=== PATIENT | male | born 1980 | race Caucasian/White ===

== ENCOUNTER 2024-12-05 02:09 | Emergency (ER) | payer BC, SELFPAY ==
--- NOTE | ~2024-12-05 | XR_ITS ---
CLINICAL HISTORY: sob 1 view chest x-ray Comparison: None Findings: Normal size heart. Left lower lobe/basilar airspace opacity. Small opacity in midlung. No significant pleural effusion or pneumothorax. No acute fracture. Mild deformity of right clavicle likely healed fracture. IMPRESSION: 1. Left lower lobe/basilar opacity suggestive of pneumonia. 2. Small right midlung opacity in early/developing pneumonia not excluded. This document has been electronically signed by: Solange Becker MD on 12/05/2024 03:08:45
[2024-12-05 02:27] VITALS: BP 119/68; PULSE 114; RESP 20; TEMP 38.6; O2SAT 98; BMI 25.4
[2024-12-05] MEDS: Acetaminophen 325 MG TABLET 650 MG PO (02:34)
[2024-12-05 03:00] LABS: MANUAL DIFF FLAG NO
[2024-12-05 03:03] LABS: Basophils Percent Auto 0.1 % (0-2); Eosinophils Absolute Auto 0.1 X10*3/uL (0.0-0.4); Eosinophils Percent Auto 0.3 % (0-4); Hematocrit 37.4 % (42.0-52.0); Hemoglobin 13.1 g/dl (14.0-18.0); Imm Gran Abs Auto 0.05 X10*3/uL (0.00-0.03); Imm Gran Pct Auto 0.3 % (0.0-0.4); Lymphocytes Absolute Auto 1.3 X10*3/uL (1.2-4.9); Lymphocytes Percent Auto 8.3 % (20-40); Mean Corpuscular Volume 82.9 fL (80.0-98.0); Mean Platelet Volume 9.9 fL (9.4-12.4); Monocytes Absolute Auto 1.4 X10*3/uL (0.1-1.2); Monocytes Percent Auto 9.4 % (2-11); Neutrophils Absolute Auto 12.3 x10*3/uL (2.0-8.3); Neutrophils Percent Auto 81.6 % (45-73); Platelet Count 250 X10*3/uL (160-400); Red Blood Count 4.51 X10*6/uL (4.60-5.80); Red Cell Distribution Width 12.8 % (11.0-16.0); White Blood Count 15.1 X10*3/uL (4.8-10.8)
[2024-12-05 03:23] LABS: Alanine Aminotransferase 9 U/L (0-40); Albumin Level 3.6 g/dL (3.5-5.0); Anion Gap 14 (12-20); Aspartate Amino Transferase 20 U/L (5-37); Bilirubin Total 1.6 mg/dL (0.0-1.0); Blood Urea Nitrogen 13 mg/dL (9-16); Calcium 8.8 mg/dL (8.4-10.2); Carbon Dioxide 22 mmol/L (22-29); Chloride 105 mmol/L (96-108); Creatinine Clr Calc Pharmacy 128.8; Estimated Glomerular Filt Rate > 60; Glucose Random 116 mg/dL (60-115); Potassium 3.8 mmol/L (3.3-5.1); Sodium 137 mmol/L (135-145); Total Protein 6.9 g/dL (6.5-8.0)
[2024-12-05 03:38] LABS: Influenza A PCR NEGATIVE (Negative); Influenza B PCR NEGATIVE (Negative); Resp Syncy Virus RNA Qual PCR NEGATIVE (Negative); SARS COV2 PCR INHOUSE NEGATIVE (Negative)
[2024-12-05 03:46] LABS: Alkaline Phosphatase 62 U/L (39-117)
[2024-12-05 04:00] VITALS: O2SAT 97
[2024-12-05 04:24] VITALS: BP 115/69; PULSE 89; RESP 18; TEMP 37; O2SAT 96
[2024-12-05] MEDS: cefTRIAXone sodium 1 GM VIAL IVPUSH (05:08)
[2024-12-05] MEDS: methylPREDNISolone Sod Succ 125 MG/2 ML VIAL IVPUSH (05:08)
[2024-12-05] MEDS: Doxycycline Monohydrate 100 MG CAPSULE PO (05:08)
--- NOTE | 2024-12-05 05:29 | PC.NURSE ---
0504--- verified antibiotic compatibility with pharmacy prior to administering ceftriaxone; cleared to administer and monitor pt.
[2024-12-05] MEDS: Albuterol Sulfate 2.5 MG, Albuterol/Iprat 2.5/0.5MG 3 ML 3 ML INHALE (05:30)
[2024-12-05 05:33] VITALS: PULSE 97; RESP 21; O2SAT 96
--- NOTE | 2024-12-05 06:03 | ED.URI ---
HPI - URI/Sore Throat General Chief Complaint: Upper Respiratory Symptoms Stated Complaint: flu like, left sided pain Time Seen by Provider: 12/05/24 04:19 Source: patient Mode of arrival: ambulatory Limitations: no limitations History of Present Illness ED Provider: HPI Narrative: Patient with history of asthma complaining of cough with mucopurulent phlegm for last 2 weeks getting worse in last 4 days complaining of pain bilateral lower lobes specially in the left side posterior does have low-grade fever off and on with chills Related Data Previous Rx's ?Medication ?Instructions ?Recorded albuterol sulfate 2.5 mg/3 mL 2.5 mg (3 mL) inhalation Q4-6H PRN 12/05/24 (0.083 %) solution for nebulization shortness of breath or wheezing #90 mL cefuroxime axetil 500 mg tablet 500 mg PO BID 10 days #20 tabs 12/05/24 codeine 10 mg-guaifenesin 100 mg/5 10 ml PO Q6H PRN cough #237 mL 12/05/24 mL oral liquid doxycycline hyclate 100 mg tablet 100 mg PO BID #20 tabs 12/05/24 ibuprofen 600 mg tablet 600 mg PO Q6H PRN fever or pain 12/05/24 #30 tabs prednisone 20 mg tablet 40 mg (2 x 20 mg) PO DAILY #10 tabs 12/05/24 Allergies Allergy/AdvReac Type Severity Reaction Status Date / Time amoxicillin AdvReac Hives Verified 12/05/24 02:30 Penicillins AdvReac Hives Verified 12/05/24 02:29 sulfamethoxazole AdvReac Hives Verified 12/05/24 02:30 [From Bactrim] trimethoprim [From Bactrim] AdvReac Hives Verified 12/05/24 02:30 Review of Systems Review of Systems: Yes all other systems are reviewed and are negative PMFSH Social History Social History Advance Directives: No Advance Directives Information Provided: Yes Do you have a plan to hurt others: No Plan Physical Exam Vital Signs: Vital Signs: Last Vital Signs Temp 98.7 F 12/05/24 06:29 Pulse 102 H 12/05/24 06:29 Resp 21 H 01/31/25 06:29 BP 137/85 12/05/24 06:29 Pulse Ox 98 12/05/24 06:29 O2 Del Method Room Air 12/05/24 06:29 BMI result Body Mass Index 25.4 Appearance: Alert. Oriented X3. No acute distress. Eyes: No pallor or icterus ENT: Pharynx normal. Oral Mucosa moist Neck: Normal inspection. Neck supple. CVS: Normal heart rate and rhythm. Pulses normal. Respiratory: No respiratory distress. Equal air entry bilateral, prolonged expiration with bilateral crackles posteriorly more on the left side with wheezing Abdomen: Soft and nontender. Bowel sounds are present, no mass palpable, no CVA tenderness Skin: Skin warm and dry. Normal skin color. Normal skin turgor. Extremities: No lower extremity edema. No calf tenderness Neuro: Oriented X 3. No motor deficit. No sensory deficit.No cerebellar signs , cranial nerves II-XII intact Medications Administered Discontinued Medications Generic Name Dose Route Start Last Admin Trade Name Freq PRN Reason Stop Dose Admin Acetaminophen 650 mg 12/05/24 02:26 12/05/24 02:34 Acetaminophen 325 Mg Tablet PO 12/05/24 02:27 650 mg ONCE ONE Administration Ceftriaxone Sodium 1 gm 12/05/24 04:56 12/05/24 05:08 Ceftriaxone Sodium 1 Gm Vial IVPUSH 12/05/24 04:57 1 gm ONCE ONE Administration Albuterol Sulfate 2.5 mg/ 0 mg 12/05/24 04:55 12/05/24 05:30 Albuterol/Ipratropium 3 ml INHALE 12/05/24 04:56 5 dose ONCE ONE Administration Doxycycline Monohydrate 100 mg 12/05/24 04:55 12/05/24 05:08 Doxycycline Monohydrate 100 Mg Capsule PO 12/05/24 04:56 100 mg ONCE ONE Administration Guaifenesin/Codeine Phosphate 10 ml 12/05/24 06:07 12/05/24 06:14 Guaifen/Codeine Sf 200/20/10ml 10 Ml Liquid PO 12/05/24 06:08 10 ml ONCE ONE Administration Methylprednisolone Sodium Succinate 125 mg 12/05/24 04:56 12/05/24 05:08 Methylprednisolone Sod Succ 125 Mg/2 Ml Vial IVPUSH 12/05/24 04:57 125 mg ONCE ONE Administration Medical Decision Making Medical Decision Making MDM Narrative: Patient's community-acquired pneumonia was given Rocephin in the ER discharge patient home on Ceftin and doxycycline Lab Data [facility] Lab Attestation statement: I reviewed the patient's lab results. 12/05/24 02:56 12/05/24 02:56 Labs: Lab Results 12/05/24 Range/Units 02:56 WBC 15.1 H (4.8-10.8) X10*3/uL RBC 4.51 L (4.60-5.80) X10*6/uL Hgb 13.1 L (14.0-18.0) g/dl Hct 37.4 L (42.0-52.0) % MCV 82.9 (80.0-98.0) fL MCH 29.0 (27.0-33.0) pg MCHC 35.0 (31.0-36.0) g/dl RDW 12.8 (11.0-16.0) % Plt Count 250 (160-400) X10*3/uL MPV 9.9 (9.4-12.4) fL Immature Gran % (Auto) 0.3 (0.0-0.4) % Neut % (Auto) 81.6 H (45-73) % Lymph % (Auto) 8.3 L (20-40) % [place] % (Auto) 9.4 (2-11) % Eos % (Auto) 0.3 (0-4) % Baso % (Auto) 0.1 (0-2) % Lymph # (Auto) 1.3 (1.2-4.9) X10*3/uL [place] # (Auto) 1.4 H (0.1-1.2) X10*3/uL Eos # (Auto) 0.1 (0.0-0.4) X10*3/uL Baso # (Auto) 0.0 (0.0-0.2) X10*3/uL Abs Immat Gran (auto) 0.05 H (0.00-0.03) X10*3/uL Absolute Neuts (auto) 12.3 H (2.0-8.3) x10*3/uL Absolute Nucleated RBC 0.000 (0.0-0.012) X10*3/uL Nucleated RBC % (auto) 0.0 (0.0-0.2) /100WBC Sodium 137 (135-145) mmol/L Potassium 3.8 (3.3-5.1) mmol/L Chloride 105 (96-108) mmol/L Carbon Dioxide 22 (22-29) mmol/L Anion Gap 14 (12-20) BUN 13 (9-16) mg/dL Creatinine 0.82 (0.5-1.4) mg/dL Estim Creat Clear Calc 128.8 Estimated GFR > 60 Random Glucose 116 H (60-115) mg/dL Calcium 8.8 (8.4-10.2) mg/dL Total Bilirubin 1.6 H (0.0-1.0) mg/dL AST 20 (5-37) U/L ALT 9 (0-40) U/L Alkaline Phosphatase 62 (39-117) U/L Total Protein 6.9 (6.5-8.0) g/dL Albumin 3.6 (3.5-5.0) g/dL Influenza Type A (PCR) NEGATIVE (Negative) Influenza Type B (PCR) NEGATIVE (Negative) RSV RNA Qual (PCR) NEGATIVE (Negative) SARS-CoV-2 RNA (RT-PCR) NEGATIVE (Negative) Radiology Impression Discussion of test interpretation with radiology: I have reviewed the radiologist's reading. Radiologist Impression: [place] [id number] XRay Report Signed Patient: Jigar Johnson MR#: [id number] : 1980 Acct:[id number] Age/Sex: 44 / M ADM Date: 12/05/24 Loc: .ED Attending Dr: Ordering Physician: Generic ED Physician Date of Service: 12/05/24 Procedure(s): XR chest 1V Accession Number(s): [id number] cc: Generic ED Physician; Physician,Unknown ~ CLINICAL HISTORY: sob 1 view chest x-ray Comparison: None Findings: Normal size heart. Left lower lobe/basilar airspace opacity. Small opacity in midlung. No significant pleural effusion or pneumothorax. No acute fracture. Mild deformity of right clavicle likely healed fracture. IMPRESSION: 1. Left lower lobe/basilar opacity suggestive of pneumonia. 2. Small right midlung opacity in early/developing pneumonia not excluded. This document has been electronically signed by: Solange Becker MD on 12/05/2024 03:08:45 Discharge Plan Discharge Clinical Impression: Pneumonia, Bronchitis Patient Disposition: Home, Self-Care Instructions: Acute Bronchitis (ED), Community Acquired Pneumonia (ED) Additional Instructions: Drink plenty of fluids take Tylenol/Motrin for fever Take antibiotic as prescribed Cough syrup as prescribed Use your nebulizer every 4-6 hours as needed Prednisone as prescribed Report to ER if not better Prescriptions: New albuterol sulfate 2.5 mg /3 mL (0.083 %) solution for nebulization 2.5 mg inhalation Q4-6H PRN (Reason: shortness of breath or wheezing) Qty: 90 0RF prednisone 20 mg tablet 40 mg PO DAILY Qty: 10 0RF codeine-guaifenesin 10-100 mg/5 mL liquid 10 ml PO Q6H PRN (Reason: cough) Qty: 237 0RF ibuprofen 600 mg tablet 600 mg PO Q6H PRN (Reason: fever or pain) Qty: 30 0RF cefuroxime axetil 500 mg tablet 500 mg PO BID 10 Days Qty: 20 0RF doxycycline hyclate 100 mg tablet 100 mg PO BID Qty: 20 0RF Interventions: ED Discharge Assessment Last Done: 12/05/24 06:29 Discharge Date/Time: 12/05/24 06:30 Print Language: Estonian
[2024-12-05] MEDS: guaiFEN/Codeine SF 200/20/10ML 10 ML LIQUID PO (06:14)
--- NOTE | 2024-12-05 06:16 | PC.NURSE ---
0513-- called RN into room due to scratchy sensation to bilateral eyes/throat. MD made aware and advised Rn to monitor pt.
--- NOTE | 2024-12-05 06:18 | PC.NURSE ---
scratchy sensation to eyes/throat subsided. resting comfortably on stretcher awaiting dispo. no distress.
[2024-12-05 06:29] VITALS: BP 137/85; PULSE 102; RESP 21; TEMP 37.1; O2SAT 98
== END 2024-12-05 06:30 | disposition home or self-care (01) ==
PROVIDERS: Emergency Provider Internal Medicine
DX: J18.9 Pneumonia, unspecified organism (principal); J40 Bronchitis, not specified as acute or chronic; R06.02 Shortness of breath; Z03.818 Encounter for observation for suspected exposure to other biological agents ruled out; Z79.899 Other long term (current) drug therapy
CPT/HCPCS: 0241U; 36415; 71045; 80053; 85025; 94640; 96374; 96375; 99284; 99285; J0696; J2919

== ENCOUNTER → 2024-12-05 02:40 | Outpatient (BNV) | payer BC, SELFPAY | PROVIDERS: Visit Provider Specialist | DX: R06.02 Shortness of breath (principal) | CPT/HCPCS: 71045 ==

== ENCOUNTER 2025-04-03 23:16 | Emergency (ER) | payer MEDICAID, SELFPAY ==
[2025-04-03 23:24] VITALS: BP 146/91; PULSE 83; RESP 18; TEMP 36.8; O2SAT 100; BMI 25.8
--- NOTE | 2025-04-03 23:27 | ED_ITS ---
HPI - Allergic Reaction General Chief complaint: Skin/Abscess/Foreign Body Stated complaint: Allergic Reaction, Hives Time Seen by Provider: 04/03/25 23:27 Source: patient Mode of arrival: ambulatory Limitations: no limitations History of Present Illness HPI narrative: patient is a 45-year-old male who presents emergency department for evaluation. He reports that he awoke from sleep at 03:00 this morning feeling intense pruritus to his right buttock. He states that as the morning has progressed this has spread to the bilateral buttocks, lower back, bilateral legs, bilateral knees, bilateral elbows. He has been taking Benadryl throughout the day and applying topical hydrocortisone cream, symptoms resolved slightly but never have fully went away. Then flare back up again. This evening he felt a tingling sensation to his lips which prompted him to come to emergency department for evaluation. The states that he has had prior skin sensitivities in the past that resulted in him having allergy testing performed, reports that he had a slight allergy to Colette not but he consumes Colette not without difficulty. He has not taken any new medications. Denies any new soaps lotions or detergents. He does report that yesterday evening he had a homemade bulgarian cuisine meal prepared from a friend she would not typically eat and a cheesecake. Related Data Previous Rx's ?Medication ?Instructions ?Recorded albuterol sulfate 2.5 mg/3 mL 2.5 mg (3 mL) inhalation Q4-6H PRN 12/05/24 (0.083 %) solution for nebulization shortness of breath or wheezing #90 mL cefuroxime axetil 500 mg tablet 500 mg PO BID 10 days #20 tabs 12/05/24 codeine 10 mg-guaifenesin 100 mg/5 10 ml PO Q6H PRN cough #237 mL 12/05/24 mL oral liquid doxycycline hyclate 100 mg tablet 100 mg PO BID #20 tabs 12/05/24 ibuprofen 600 mg tablet 600 mg PO Q6H PRN fever or pain 12/05/24 #30 tabs prednisone 20 mg tablet 40 mg (2 x 20 mg) PO DAILY #10 tabs 12/05/24 loratadine 10 mg tablet (Claritin) 10 mg PO DAILY #10 tabs 04/04/25 prednisone 20 mg tablet 40 mg (2 x 20 mg) PO DAILY #10 tabs 04/04/25 Allergies Allergy/AdvReac Type Severity Reaction Status Date / Time amoxicillin AdvReac Hives Verified 04/03/25 23:26 Penicillins AdvReac Hives Verified 04/03/25 23:26 sulfamethoxazole AdvReac Hives Verified 04/03/25 23:26 [From Bactrim] trimethoprim [From Bactrim] AdvReac Hives Verified 04/03/25 23:26 Review of Systems 2 Review of Systems: Yes all other systems are reviewed and are negative [facility] Past Medical History Attestation statement: The following information was validated with the patient. Source: old records reviewed Social History Social History Smoked in Last 30 Days: No Use of substances other than those prescribed or required for medical reasons: No Advance Directives: No Advance Directives Information Provided: Yes Do you have a plan to hurt others: No Plan Physical Exam ED Vital Signs: Vital Signs - 24 hr 04/03/25 23:24 04/04/25 00:04 04/04/25 01:31 Temperature 98.3 F 98.3 F 98.3 F Pulse Rate 83 76 76 Respiratory Rate 18 22 H 22 H Blood Pressure 146/91 H 143/68 H 143/68 H Pulse Oximetry 100 99 99 Oxygen Delivery Method Room Air Room Air Room Air BMI result Body Mass Index 25.8 Appearance: Alert.?Oriented to person, place and time. No acute distress.?Normal affect. Eyes: Pupils equal, round and reactive to light.? ENT: Pharynx normal.?? No angioedema. Uvula midline. No trismus. No drooling. Neck: Normal inspection.? Neck supple.?? CVS: Heart sounds normal. Normal heart rate and rhythm.? Pulses normal.?? Respiratory: No respiratory distress.? Lung sounds clear to auscultation bilaterally?? Abdomen: Soft and non-tender. Normoactive bowel sounds. Skin: Skin warm and dry.? Normal skin color.? urticaria noted to the bilateral buttock, bilateral knee, bilateral elbows and right hand. Extremities: No lower extremity edema.? No calf ttp? Neuro: Moves all extremities spontaneously. Sensation intact bilaterally. Ambulates with normal steady gait. Course Reevaluation(s) Reevaluation #1: Symptomatic improvement after medicated with near complete resolution of urticaria. Range without angioedema or respiratory distress. Requesting discharge home dry feel is reasonable at this time. Sent prescription for prednisone to pharmacy and strict return precautions were discussed. Overall serum labs unremarkable CBC without leukocytosis anemia or thrombocytopenia, no electrolyte derangement, no NICO. No significant LFT abnormality. Medications Administered Discontinued Medications Generic Name Dose Route Start Last Admin Trade Name Saloni PRN Reason Stop Dose Admin Diphenhydramine HCl 25 mg 04/03/25 23:45 04/04/25 00:06 Diphenhydramine Hcl 50 Mg/Ml Vial IVPUSH 04/03/25 23:46 25 mg ONCE ONE Administration Famotidine 20 mg 04/03/25 23:45 04/04/25 00:07 Famotidine/Pf 20 Mg/2 Ml Vial IVPUSH 04/03/25 23:46 20 mg ONCE ONE Administration Methylprednisolone Sodium Succinate 125 mg 04/03/25 23:45 04/04/25 00:06 Methylprednisolone Sod Succ 125 Mg Vial IVPUSH 04/03/25 23:46 125 mg ONCE ONE Administration Medical Decision Making Medical Decision Making [facility] Narrative: patient is a 45-year-old male who presents emergency department for evaluation with expressed concern for an allergic reaction with a intensely pruritic rash spreading diffusely throughout the body progressively throughout today as per HPI. He trialed a few doses of Benadryl throughout the day as well as hydrocortisone with only mild symptomatic improvement but never complete resolution. This evening had tingling sensation to the mouth with his concern. On evaluation he does not have angioedema, no airway compromise, he is managing secretions and speaking clear full sentences. At this time the cause of this reaction is unclear. Will trial Solu-Medrol, Benadryl, Pepcid at this time. Not c/w SSSS/ TEN/Erythema multiforme/ Restrepo Johnsons. Given history and physical exam, Will watch and observe. If patient continues to be symptom free After being medically, will discharge with return precautions. Patient understands and agrees with plan Differential concerning for Allergic reaction/urticaria, anaphylaxis, angioedema, anxiety, asthma exacerbation, contact dermatitis Differential Diagnosis Differential Diagnoses: The differential diagnosis associated with the presentation includes ( see narrative above) Admission/Observation Consideration of admission/observation: Escalation of care including admission/observation considered Lab Data 04/04/25 00:04 04/04/25 00:04 Labs: Lab Results 04/04/25 Range/Units 00:04 WBC 8.2 (4.8-10.8) X10*3/uL RBC 5.13 (4.60-5.80) X10*6/uL Hgb 14.9 (14.0-18.0) g/dl Hct 41.6 L (42.0-52.0) % MCV 81.1 (80.0-98.0) fL MCH 29.0 (27.0-33.0) pg MCHC 35.8 (31.0-36.0) g/dl RDW 12.8 (11.0-16.0) % Plt Count 226 (160-400) X10*3/uL MPV 10.0 (9.4-12.4) fL Immature Gran % (Auto) 0.2 (0.0-0.4) % Neut % (Auto) 52.3 (45-73) % Lymph % (Auto) 35.2 (20-40) % [place] % (Auto) 9.3 (2-11) % Eos % (Auto) 2.1 (0-4) % Baso % (Auto) 0.9 (0-2) % Lymph # (Auto) 2.9 (1.2-4.9) X10*3/uL [place] # (Auto) 0.8 (0.1-1.2) X10*3/uL Eos # (Auto) 0.2 (0.0-0.4) X10*3/uL Baso # (Auto) 0.1 (0.0-0.2) X10*3/uL Abs Immat Gran (auto) 0.02 (0.00-0.03) X10*3/uL Absolute Neuts (auto) 4.3 (2.0-8.3) x10*3/uL Absolute Nucleated RBC 0.000 (0.0-0.012) X10*3/uL Nucleated RBC % (auto) 0.0 (0.0-0.2) /100WBC Sodium 139 (135-145) mmol/L Potassium 4.6 D (3.3-5.1) mmol/L Chloride 107 (96-108) mmol/L Carbon Dioxide 23 (22-29) mmol/L Anion Gap 14 (12-20) BUN 17 H (9-16) mg/dL Creatinine 0.97 (0.5-1.4) mg/dL Estim Creat Clear Calc 107.7 Estimated GFR > 60 Random Glucose 96 (60-115) mg/dL Calcium 9.2 (8.4-10.2) mg/dL Total Bilirubin 0.8 (0.0-1.0) mg/dL AST 47 H (5-37) U/L ALT 28 (0-40) U/L Alkaline Phosphatase 67 (39-117) U/L Total Protein 7.4 (6.5-8.0) g/dL Albumin 4.1 (3.5-5.0) g/dL External Record Review External record reviewed: Outpatient record Discharge Plan Discharge Clinical Impression: Urticaria Patient Disposition: Home, Self-Care Instructions: Urticaria (ED) Additional Instructions: as discussed, at this time it is clear what you were having a reaction to. You presenting to emergency department with hives on the body, for which he received medication Sometimes this can happen as we discussed idiopathic daily, for reasons unknown versus secondary to an exposure or in response to illness. Sent a prescription for prednisone to your pharmacy to take daily over the next 5 days, please take this with food to prevent stomach upset. Addition, take antihistamines; Claritin daily. Follow-up with PCP/ infection control coordinator with persistent symptoms. Return to emergency department with new or worsening symptoms or concerns which includes but is not limited to difficulty breathing, swelling of the face/ lip/throat, chest pain Prescriptions: New prednisone 20 mg tablet 40 mg PO DAILY Qty: 10 0RF loratadine [Claritin] 10 mg tablet 10 mg PO DAILY Qty: 10 0RF No Action albuterol sulfate 2.5 mg /3 mL (0.083 %) solution for nebulization 2.5 mg inhalation Q4-6H PRN (Reason: shortness of breath or wheezing) Qty: 90 0RF prednisone 20 mg tablet 40 mg PO DAILY Qty: 10 0RF codeine-guaifenesin 10-100 mg/5 mL liquid 10 ml PO Q6H PRN (Reason: cough) Qty: 237 0RF ibuprofen 600 mg tablet 600 mg PO Q6H PRN (Reason: fever or pain) Qty: 30 0RF cefuroxime axetil 500 mg tablet 500 mg PO BID 10 Days Qty: 20 0RF doxycycline hyclate 100 mg tablet 100 mg PO BID Qty: 20 0RF Referrals: Gregg Salcedo MD [Primary Care Provider] - Interventions: ED Discharge Assessment Last Done: 04/04/25 01:31 Discharge Date/Time: 04/04/25 01:32 Print Language: Persian
[2025-04-04 00:04] VITALS: BP 143/68; PULSE 76; RESP 22; TEMP 36.8; O2SAT 99
[2025-04-04] MEDS: diphenhydrAMINE HCL 50 MG/ML VIAL 25 MG IVPUSH (00:06)
[2025-04-04] MEDS: Famotidine/PF 20 MG/2 ML VIAL IVPUSH (00:07)
[2025-04-04 00:09] LABS: MANUAL DIFF FLAG NO
[2025-04-04 00:11] LABS: Basophils Absolute Auto 0.1 X10*3/uL (0.0-0.2); Basophils Percent Auto 0.9 % (0-2); Eosinophils Absolute Auto 0.2 X10*3/uL (0.0-0.4); Eosinophils Percent Auto 2.1 % (0-4); Hematocrit 41.6 % (42.0-52.0); Hemoglobin 14.9 g/dl (14.0-18.0); Imm Gran Abs Auto 0.02 X10*3/uL (0.00-0.03); Imm Gran Pct Auto 0.2 % (0.0-0.4); Lymphocytes Absolute Auto 2.9 X10*3/uL (1.2-4.9); Lymphocytes Percent Auto 35.2 % (20-40); Mean Corpuscular HGB Conc 35.8 g/dl (31.0-36.0); Mean Corpuscular Volume 81.1 fL (80.0-98.0); Monocytes Absolute Auto 0.8 X10*3/uL (0.1-1.2); Monocytes Percent Auto 9.3 % (2-11); Neutrophils Absolute Auto 4.3 x10*3/uL (2.0-8.3); Neutrophils Percent Auto 52.3 % (45-73); Platelet Count 226 X10*3/uL (160-400); Red Blood Count 5.13 X10*6/uL (4.60-5.80); Red Cell Distribution Width 12.8 % (11.0-16.0); White Blood Count 8.2 X10*3/uL (4.8-10.8)
[2025-04-04 00:28] LABS: Alanine Aminotransferase 28 U/L (0-40); Albumin Level 4.1 g/dL (3.5-5.0); Alkaline Phosphatase 67 U/L (39-117); Anion Gap 14 (12-20); Aspartate Amino Transferase 47 U/L (5-37); Bilirubin Total 0.8 mg/dL (0.0-1.0); Blood Urea Nitrogen 17 mg/dL (9-16); Calcium 9.2 mg/dL (8.4-10.2); Carbon Dioxide 23 mmol/L (22-29); Chloride 107 mmol/L (96-108); Creatinine Clr Calc Pharmacy 107.7; Estimated Glomerular Filt Rate > 60; Glucose Random 96 mg/dL (60-115); Potassium 4.6 mmol/L (3.3-5.1); Sodium 139 mmol/L (135-145); Total Protein 7.4 g/dL (6.5-8.0)
--- OUTSIDE RECORDS SUMMARY | 2025-04-04 00:54 | XMS_ITS | Clinical Summary ---
Author Organization [facility] Address [address] [place] [address] Care Team Providers Care Population Health Manager Name Role Phone Pierre Salcedo Primary Care Provider Allergies Active Allergy Reactions Criticality Noted Date Comments Penicillins Hives,Dermatitis,Rash 11/03/2010 Sulfa (Sulfonamide Antibiotics) Dermatitis 11/03/2010 BACTRIM(SULFA (SULFONAMIDE ANTIBIOTICS)) Medications No known medications Active Problems Problem Noted Date Diagnosed Date Oral thrush 05/01/2023 Social History Tobacco Use Types Packs/Day Years Used Date Smoking Tobacco: Never Assessed Sex and Gender Information Value Date Recorded Sex Assigned at Male 04/30/2023 9:49 AM EDT Legal Sex Male 11:48 AM EDT Gender Identity Male 04/30/2023 9:49 AM EDT Sexual Orientation Straight 04/30/2023 9: 49 AM EDT Last Filed Vital Signs Vital Sign Reading Time Taken Comments Blood Pressure 111/74 05/01/2023 8:58 AM EDT Pulse 72 05/01/2023 8:58 AM EDT Temperature 36.6 ??C (97.8 ??F) 05/01/2023 8:58 AM ED T Respiratory Rate 18 05/01/2023 8:58 AM EDT Oxygen Saturation 98% 05/01/2023 8:58 AM EDT Inhaled Oxygen Concentration - - Weight 81.2 kg (179 lb) 05/01/2023 8:58 AM EDT Height - - Body Mass Index - - Plan of Treatment Health Maintenance Due Date Last Done Comments Hepatitis C Screening 1980 Varicella Vaccines (1 of 2 - 13+ 2-dose series) 1995 Hepatitis B Vaccines (1 of 3 - 19+ 3-dose series) 2001 Pneumococcal Vaccine: Pediat faheem (0-5 Years) and At-Risk Patients (6-50 Years) (2 of 2 - PPSV23) 08/23/2015 06/28/2015 COVID-19 Vaccine (3 - 2023- season) 2024, 02/01/2021 Alcohol/Substance Use Screening 11/05/2024 Depression Screening and Follow-Up 11/05/2024 Social Drivers of Health Annual Screening 11/05/2024 DTaP,Tdap,and Td Vaccines (2 - Td or Tdap) 06/28/2025 06/28/2015 Influenza Vaccine (Season Ended) 2025 08/18/20, 07/25/2019 RSV Vaccine (60+ years old a nd patients) (1 - 1-dose 75+ series) 2057 HIV Screening Completed 05/01/2023 Insurance [facility] PPO/EPO Care Teams Population Health Manager Relationship Specialty Start Date End Date Pierre Salcedo PCP - General Family Medicine 03/08/22
[2025-04-04 01:31] VITALS: BP 143/68; PULSE 76; RESP 22; TEMP 36.8; O2SAT 99
== END 2025-04-04 01:32 | disposition home or self-care (01) ==
PROVIDERS: Nurse Practitioner Family; Emergency Provider Emergency Medicine; PCP Plastic Surgery
DX: L50.9 Urticaria, unspecified (principal)
CPT/HCPCS: 36415; 80053; 85025; 96374; 96375; 99284; J1200; J1308; J2919

== ENCOUNTER 2025-06-21 02:25 | Observation (INO) | payer OTHER, SELFPAY ==
--- NOTE | ~2025-06-21 | XR_ITS ---
CLINICAL HISTORY: cough - COVID+ 1 view chest x-ray Comparison: CR - XR CHEST 1V - 12/05/24 02:43 EST Findings: The lungs are clear. Lung inflation is normal. Cardiac and mediastinal silhouettes are normal. No pneumothorax or pleural effusion. No new airspace opacities or consolidation. No acute fracture. IMPRESSION: 1. No acute cardiopulmonary process. This document has been electronically signed by: Rneé Keller III, MD PHD on 06/21/2025 05:03:27
--- NOTE | ~2025-06-21 | CT_ITS ---
CLINICAL HISTORY: acute onset confusion and gait instability CT angiography neck and head with contrast. 3D Postprocessing. Indication: Onset confusion and gait instability Comparison: None Findings: The aortic arch is conventional. Left subclavian is normal. The origin of the vertebral arteries are normal. V1 and V2 segments enhance normally. Mid V2 segment evaluation is limited due to patient motion. V3 segments are normal. The common carotid arteries are normal. Carotid bifurcations demonstrate 0% stenosis by NASCET criteria. No plaque ulceration. No significant wall thickness, allowing for motion limitations. The internal carotid arteries are patent. No pseudoaneurysm or stenosis. The petrous internal carotid arteries are normal. Cavernous internal carotid arteries are normal. Ophthalmic origins are normal. Supraclinoid internal carotid arteries are normal. A1 segments are codominant. There is a small anterior communicating artery. A2 and A3 segments are normal. The middle cerebral arteries are normal. No large vessel occlusion or stenosis. No aneurysm. The left posterior communicating artery is hypoplastic. The right posterior communicating arteries diminutive. Intradural vertebral arteries are codominant. Posterior inferior cerebellar arteries are patent. There is a fenestration of the left intradural V4 segment. The left posterior inferior cerebellar artery arises from a common anterior inferior cerebellar arterial trunk. The superior cerebellar arteries are normal. Posterior cerebral arteries are normal. Dural venous sinuses enhance normally. Veins of [place] are normal. Superior sagittal sinus, transverse and sigmoid sinuses are normal. Straight sinus and internal cerebral veins are normal. Paraspinal soft tissues are normal. Aerodigestive mucosa is normal. There is no lymphadenopathy. Parotid and submandibular glands are normal. Oral cavity and oropharynx are normal. Larynx is normal. Thyroid gland is homogeneous. IMPRESSION: No evidence of intracranial stenosis, occlusion, large vessel occlusion, or aneurysm. No evidence of dissection or pseudoaneurysm or stenosis in the cervical vasculature. Anatomic variant left vertebral fenestration. Normal dural venous sinuses. This document has been electronically signed by: René Keller III, MD PHD on 06/21/2025 04:48:08
--- NOTE | ~2025-06-21 | CT_ITS ---
CLINICAL HISTORY: change in mental status CT head without contrast Indication: Change in mental status Comparison: None Findings: Brain is normal in volume and morphology. Ventricles are normal in size. Midbrain, rashaun, medulla, and cerebellum are normal. There is no focal loss of love-white differentiation. No subarachnoid hemorrhage is present. No subdural or epidural hematoma. Suprasellar and basal cisterns are clear. There is no midline shift. Pituitary is normal. Orbits are normal. No acute fracture. Mastoid air cells and paranasal sinuses are clear. No soft tissue hematoma. IMPRESSION: 1. No acute intracranial hemorrhage. 2. No loss of love-white differentiation This document has been electronically signed by: René Keller III, MD PHD on 06/21/2025 03:55:51
[2025-06-21 02:33] VITALS: BP 162/100; PULSE 118; O2SAT 97
[2025-06-21 02:38] VITALS: BP 146/86; PULSE 100; RESP 20; TEMP 36.4; O2SAT 99; BMI 27.1
--- OUTSIDE RECORDS SUMMARY | 2025-06-21 02:51 | XMS_ITS | Clinical Summary ---
Author Organization [facility] Address [address] [place] [address] Care Team Providers Care Down Filler Name Role Phone Pierre Salcedo Primary Care [...] 72 05/01/2023 8:58 AM EDT Temperature 36.6 C (97.8 F) 05/01/2023 8:58 AM EDT Respiratory Rate 18 05/01/2023 8:58 AM EDT [...] Patients (6-50 Years) (2 of 2 - PPSV23, PCV20, or PCV21) 08/23/2015 06/28/2015 COVID-19 Vaccine (3 - 2023- season) 2024, 02/01/2021 Alcohol/Substance Use Screening 11/05/2024 Depression Screening and Follow-Up 11/05/2024 Social Drivers of Health Annual Screening 11/05/2024 DTaP,Tdap,and Td Vaccines (2 - Td or Tdap) 06/28/2025 06/28/2015 Influenza Vaccine (#1) 2025 08/18/2020, 2018 RSV Vaccine (60+ years old a nd patients) (1 - 1-dose 75+ series) 2057 HIV Screening Completed 05/01/2023 Insurance [facility] PPO/EPO Care Teams Down Filler Relationship Specialty Start Date End Date Pierre Salcedo PCP - General Family Medicine 03/08/22
--- NOTE | 2025-06-21 03:00 | ECG_ITS ---
Test Reason : QTC CHECK Blood Pressure : */* mmHG Vent. Rate : 105 BPM Atrial Rate : 105 BPM P-R Int : 178 ms QRS Dur : 130 ms QT Int : 380 ms P-R-T Axes : 55 -27 21 degrees QTcB Int : 502 ms Sinus tachycardia Right bundle branch block Abnormal ECG No previous ECGs available Referred By: Marleen Coronado Electronically Signed By: Yomi Seo
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
--- NOTE | 2025-06-21 03:10 | PC.NURSE ---
assist pt to the bathroom, pt unsure what to do, needed a lot of redirection, very altered. UA/BARBER collected
[2025-06-21] MEDS: diazePAM 10 MG/2 ML CARTRIDGE 2.5 MG IVPUSH (03:36)
[2025-06-21] MEDS: Lactated Ringers 1,000 ML 999 ML IV ×2 (03:36→07:02)
[2025-06-21 03:37] LABS: Appearance Urine Clear; Glucose Urine UA Negative (Negative); Hematocrit 42.8 % (42.0-52.0); Hemoglobin 15.1 g/dl (14.0-18.0); Imm Gran Abs Auto 0.08 X10*3/uL (0.00-0.03); Imm Gran Pct Auto 0.5 % (0.0-0.4); Lymphocytes Absolute Auto 1.0 X10*3/uL (1.2-4.9); MANUAL DIFF FLAG SCAN; Mean Corpuscular HGB Conc 35.3 g/dl (31.0-36.0); Mean Corpuscular Hemoglobin 29.6 pg (27.0-33.0); Mean Corpuscular Volume 83.9 fL (80.0-98.0); NRBC Abs Auto 0.000 X10*3/uL (0.0-0.012); NRBC Pct Auto 0.0 /100WBC (0.0-0.2); PH 6.5 (5.0-9.0); Platelet Count 205 X10*3/uL (160-400); Red Blood Count 5.10 X10*6/uL (4.60-5.80); SCAN SMEAR FLAG 1; Specific Gravity - Urine 1.015 (1.005-1.025); White Blood Count 16.7 X10*3/uL (4.8-10.8)
--- NOTE | 2025-06-21 03:39 | PC.NURSE ---
Addendum entered by Chiara Mcmahon 06/21/25 06:40: RIGHT forearm Original Note: 20g IV L forearm
[2025-06-21 03:49] LABS: Cannabinoid Screen Urine Not Detected (Not Detect)
[2025-06-21 03:51] LABS: Ammonia 27 umol/L (13-55)
[2025-06-21 03:58] LABS: Acetaminophen LAB < 3 mcg/mL (<30); Salicylate < 5.0 mg/dL (15-30)
[2025-06-21] MEDS: iohexoL 350 MG/ML 100 ML INFUS..BTL 75 ML IV (03:58)
[2025-06-21 04:02] LABS: Alanine Aminotransferase 26 U/L (0-40); Albumin Level 4.7 g/dL (3.5-5.0); Alkaline Phosphatase 84 U/L (39-117); Anion Gap 15 (12-20); Aspartate Amino Transferase 33 U/L (5-37); Blood Urea Nitrogen 19 mg/dL (9-16); Calcium 9.3 mg/dL (8.4-10.2); Carbon Dioxide 25 mmol/L (22-29); Chloride 103 mmol/L (96-108); Creatinine Clr Calc Pharmacy 110.0; Estimated Glomerular Filt Rate > 60; Potassium 3.6 mmol/L (3.3-5.1); Sodium 139 mmol/L (135-145); Total Protein 7.5 g/dL (6.5-8.0)
[2025-06-21 04:13] LABS: Resp Syncy Virus RNA Qual PCR NEGATIVE (Negative); SARS COV2 PCR INHOUSE POSITIVE (Negative)
[2025-06-21 04:27] LABS: Magnesium 2.0 mg/dL (1.6-2.6)
--- NOTE | 2025-06-21 04:48 | PC.NURSE ---
pt ambulated to the bathroom, gait unsteady, pt reporting he feels dizzy
[2025-06-21 04:49] VITALS: BP 141/75; PULSE 102; RESP 18; TEMP 36.7; O2SAT 98
[2025-06-21] MEDS: diazePAM 10 MG/2 ML CARTRIDGE 5 MG IVPUSH (05:20)
[2025-06-21] MEDS: Lidocaine HCl 1 % MPF 5 ML VIAL SUBCUT (05:20)
[2025-06-21 06:03] VITALS: BP 122/81; PULSE 97; RESP 16; TEMP 36.6; O2SAT 95
--- NOTE | 2025-06-21 07:03 | PC.NURSE ---
This RN assumed care of patient @ 0700. Patient resting in bed, on groundwater monitoring technician sinus tach 101 Covid + precautions in place IV 20G right forearm currently running LR Denies pain and SOB
[2025-06-21 08:08] LABS: Reflex Lactate? Lactic Acid Added
[2025-06-21 09:14] LABS: ~Lactic Acid-LAB USE ONLY 2.7 mmol/L (0.5-2.0)
--- NOTE | 2025-06-21 09:16 | PM.IMHP ---
History of Present Illness Date of Service: 06/21/25 Chief Complaint: ams 45M PMH depression and seasonal allergies presented with AMS. Patient reports feeling fatigued for about 2 days prior to presentation. Tested himself positive for COVID. To treat symptoms has taken about 10 pills of 25 mg Benadryl in about 2 days. He is also on daily Zyrtec. On evening of presentation patient felt even more fatigued and says the last thing he remembers is going to bed at 23:00. He then woke up in hospital this morning. Per report from girlfriend and EMS patient was crawling on the floor, confused staring off into space disoriented to place and time. In ED, CT head is negative, CTA head and neck is normal, mild lactic acidosis and leukocytosis otherwise labs unremarkable EKG with sinus tachycardia, QRS prolonged at 116, QTC 502. Currently patient feels mentally back to baseline but reports feeling unsteady while ambulating. Review of Systems Review of Systems: Yes all other systems are reviewed and are negative [facility] Medical History Depression Social History Patient Tobacco Use Status: Never used Tobacco Advance Directives: No Meds Allergies Allergy/AdvReac Type Severity Reaction Status Date / Time amoxicillin AdvReac Hives Verified 06/21/25 02:38 Penicillins AdvReac Hives Verified 06/21/25 02:38 sulfamethoxazole (From AdvReac Hives Verified 06/21/25 02:38 Bactrim) trimethoprim (From Bactrim) AdvReac Hives Verified 06/21/25 02:38 Active Medications: Current Medications Acetaminophen (Acetaminophen 325 Mg Tablet) 650 mg PO Q6H PRN PRN Reason: Pain, Mild 1-3,fever,headache Calcium Carbonate (Calcium Carbonate 750 Mg Tab.Chew) 750 mg PO Q4H PRN PRN Reason: Heartburn Enoxaparin Sodium (Enoxaparin Sodium 40 Mg/0.4 Ml Syringe) 40 mg SUBCUT Q24H KIARA Magnesium Hydroxide (Milk Of Magnesia 30 Ml Oral.Susp) 30 ml PO DAILY PRN PRN Reason: Constipation Melatonin (Melatonin 3 Mg Tablet) 6 mg PO BEDTIME PRN PRN Reason: Insomnia Sodium Chloride (0.9 % Sodium Chloride Flush 3 Ml Syringe) 3 ml IVFLUSH QSHIFT [facility] Physical Exam Vital Signs and Narrative: Vital Signs: Last Vital Signs Temp 98 F 06/21/25 06:03 Pulse 97 06/21/25 06:03 Resp 16 06/21/25 06:03 BP 122/81 06/21/25 06:03 Pulse Ox 95 06/21/25 06:03 O2 Del Method Room Air 06/21/25 06:03 BMI result Body Mass Index 27.1 General: AO X 3, no acute distress Resp: CTA bilateral, no accessory muscles used CVS: S1,S2,RRR GI: soft, non tender, non distended Neuro: motor grossly intact, alert, mild ataxia Psych: appropriate affect, appropriate insight Results Labs 06/21/25 03:20 06/21/25 03:20 Labs: Laboratory Results - last 24 hr 06/21/25 06/21/25 06/21/25 03:20 06:02 08:43 MCV 83.9 MCH 29.6 MCHC 35.3 RDW 13.1 Plt Count 205 MPV 10.6 Immature Gran % (Auto) 0.5 H Neut % (Auto) 90.2 H Lymph % (Auto) 6.2 L [place] % (Auto) 2.8 Eos % (Auto) 0.1 Baso % (Auto) 0.2 Lymph # (Auto) 1.0 L [place] # (Auto) 0.5 Eos # (Auto) 0.0 Baso # (Auto) 0.0 Abs Immat Gran (auto) 0.08 H Absolute Neuts (auto) 15.1 H Absolute Nucleated RBC 0.000 Nucleated RBC % (auto) 0.0 Smear Tech's Comments VERIFIED Anion Gap 15 Estim Creat Clear Calc 110.0 Estimated GFR > 60 Random Glucose 135 H Lactic Acid 2.4 H* Lactic Acid F/U @ 2Hr 2.7 H* Calcium 9.3 Magnesium 2.0 Total Bilirubin 0.8 AST 33 ALT 26 Alkaline Phosphatase 84 Ammonia 27 Total Creatine Kinase 73 C-Reactive Protein 0.61 H Total Protein 7.5 Albumin 4.7 TSH 1.12 Urine Color Yellow Urine Appearance Clear Urine pH 6.5 Ur Specific [place] 1.015 Urine Protein Negative Urine Glucose (UA) Negative Urine Ketones Negative Urine Blood Negative Urine Nitrite Negative Ur Leukocyte Esterase Negative Urine RBC 0-2 Urine WBC 0-5 Ur Squamous Epith Cells 0-2 Urine Bacteria None Seen Hyaline Casts 0-2 Salicylates < 5.0 L Urine Opiates Screen Not Detected Ur Buprenorphine Scrn Not Detected Ur Oxycodone Screen Not Detected Urine Methadone Screen Not Detected Urine Fentanyl Screen Not Detected Acetaminophen < 3 Ur Barbiturates Screen Not Detected Ur Phencyclidine Scrn Not Detected Ur Amphetamines Screen Not Detected U Benzodiazepines Scrn Not Detected Urine Cocaine Screen Not Detected U Marijuana (THC) Screen Not Detected Ethyl Alcohol < 10 Influenza Type A (PCR) NEGATIVE Influenza Type B (PCR) NEGATIVE RSV RNA Qual (PCR) NEGATIVE SARS-CoV-2 RNA (RT-PCR) POSITIVE A Assessment and Plan (1) Encephalopathy acute: Status: Acute Plan 45M PMH depression and seasonal allergies presented with AMS Acute toxic metabolic encephalopathy Most likely to antihistamine toxicity Appears to mostly be resolved Differential includes acute psychosis, COVID encephalopathy although given rapid improvement these are less likely will continue to observe on telemetry DVT prophylaxis Lovenox Full Code Quality Stroke Does the patient have a stroke diagnosis?: No VTE Prior VTE?: No VTE Risk Level:: Medical - moderate - high VTE Device Contraindication: Treatment Not Indicated VTE Drug Contraindication: N/A - Med Ordered
--- NOTE | 2025-06-21 09:25 | PC.NURSE ---
Critical lab received lactic 2.7 increased from 2.4. Notified Mckenna TAY order to discontinue lactic no sepsis
[2025-06-21 09:29] LABS: Cancel Lactic Acid Canceled
[2025-06-21 11:25] VITALS: BP 146/83; PULSE 120; RESP 16; TEMP 36.7; O2SAT 96
--- NOTE | 2025-06-21 12:29 | P.DS_ITS ---
DS: Providers Provider Date of Service: 06/21/25 Date of admission: 06/21/25 07:01 Date of discharge: 06/21/25 Primary care physician: Gregg Salcedo MD DS: Diagnosis Discharge Diagnosis (1) Encephalopathy acute: Status: Acute DS: Summary Hospital Course Hospital Course: from initial hpi: 45M PMH depression and seasonal allergies presented with AMS. Patient reports feeling fatigued for about 2 days prior to presentation. Tested himself positive for COVID. To treat symptoms has taken about 10 pills of 25 mg Benadryl in about 2 days. He is also on daily Zyrtec. On evening of presentation patient felt even more fatigued and says the last thing he remembers is going to bed at 23:00. He then woke up in hospital this morning. Per report from girlfriend and EMS patient was crawling on the floor, confused staring off into space disoriented to place and time. In ED, CT head is negative, CTA head and neck is normal, mild lactic acidosis and leukocytosis otherwise labs unremarkable EKG with sinus tachycardia, QRS prolonged at 116, QTC 502. Currently patient feels mentally back to baseline but reports feeling unsteady while ambulating. hospital course: Patient was monitored for acute toxic metabolic encephalopathy most likely due to antihistamine toxicity. After several hours he returned to completely to baseline. Now mentally clear and ambulating well. He will be discharged home and instructed to avoid Benadryl and other sedative medications. If symptoms recur should returned to ED. for covid, symptomatic management. Time Attestation Discharge Coordination Time (in mins): 33 Quality: Safe Use of Opioids Does Pt have an Active Cancer Diagnosis on the Problem List?: No Quality: Stroke Does the patient have a stroke diagnosis?: No Physical Exam Exam: Exam: General: AO X 3, no acute distress Resp: CTA bilateral, no accessory muscles used CVS: S1,S2,RRR GI: soft, non tender, non distended Neuro: motor grossly intact, alert Psych: appropriate affect, appropriate insight Vital Signs: Vital Signs: Last Vital Signs Temp 98.0 F 06/21/25 11:25 Pulse 120 H 06/21/25 11:25 Resp 16 06/21/25 11:25 BP 146/83 H 06/21/25 11:25 Pulse Ox 96 06/21/25 11:25 O2 Del Method Room Air 06/21/25 11:25 BMI result Body Mass Index 27.1 DS: Data Data Completed and Pending Labs on day of discharge: Laboratory Results - last 24 hr 06/21/25 06/21/25 06/21/25 03:20 06:02 08:43 WBC 16.7 H RBC 5.10 Hgb 15.1 Hct 42.8 MCV 83.9 MCH 29.6 MCHC 35.3 RDW 13.1 Plt Count 205 MPV 10.6 Immature Gran % (Auto) 0.5 H Neut % (Auto) 90.2 H Lymph % (Auto) 6.2 L [place] % (Auto) 2.8 Eos % (Auto) 0.1 Baso % (Auto) 0.2 Lymph # (Auto) 1.0 L [place] # (Auto) 0.5 Eos # (Auto) 0.0 Baso # (Auto) 0.0 Abs Immat Gran (auto) 0.08 H Absolute Neuts (auto) 15.1 H Absolute Nucleated RBC 0.000 Nucleated RBC % (auto) 0.0 Smear Tech's Comments VERIFIED Sodium 139 Potassium 3.6 D Chloride 103 Carbon Dioxide 25 Anion Gap 15 BUN 19 H Creatinine 0.95 Estim Creat Clear Calc 110.0 Estimated GFR > 60 Random Glucose 135 H Lactic Acid 2.4 H* Lactic Acid F/U @ 2Hr 2.7 H* Calcium 9.3 Magnesium 2.0 Total Bilirubin 0.8 AST 33 ALT 26 Alkaline Phosphatase 84 Ammonia 27 Total Creatine Kinase 73 C-Reactive Protein 0.61 H Total Protein 7.5 Albumin 4.7 TSH 1.12 Urine Color Yellow Urine Appearance Clear Urine pH 6.5 Ur Specific [place] 1.015 Urine Protein Negative Urine Glucose (UA) Negative Urine Ketones Negative Urine Blood Negative Urine Nitrite Negative Ur Leukocyte Esterase Negative Urine RBC 0-2 Urine WBC 0-5 Ur Squamous Epith Cells 0-2 Urine Bacteria None Seen Hyaline Casts 0-2 Salicylates < 5.0 L Urine Opiates Screen Not Detected Ur Buprenorphine Scrn Not Detected Ur Oxycodone Screen Not Detected Urine Methadone Screen Not Detected Urine Fentanyl Screen Not Detected Acetaminophen < 3 Ur Barbiturates Screen Not Detected Ur Phencyclidine Scrn Not Detected Ur Amphetamines Screen Not Detected U Benzodiazepines Scrn Not Detected Urine Cocaine Screen Not Detected U Marijuana (THC) Screen Not Detected Ethyl Alcohol < 10 Influenza Type A (PCR) NEGATIVE Influenza Type B (PCR) NEGATIVE RSV RNA Qual (PCR) NEGATIVE SARS-CoV-2 RNA (RT-PCR) POSITIVE A Discharge Plan Discharge Anticipated Discharge Date/Time: 06/21/25 12:27 Patient Disposition: Home, Self-Care Discharge Diagnosis: antihistamine induced encephalopathy Referrals: Gregg Salcedo MD [Primary Care Provider, Plastic Surgery] - 1 Week Discharge Medications: Continued albuterol sulfate 2.5 mg /3 mL (0.083 %) solution for nebulization 2.5 mg inhalation Q4-6H PRN (Reason: shortness of breath or wheezing) Qty: 90 0RF prednisone 20 mg tablet 40 mg PO DAILY Qty: 10 0RF codeine-guaifenesin 10-100 mg/5 mL liquid 10 ml PO Q6H PRN (Reason: cough) Qty: 237 0RF ibuprofen 600 mg tablet 600 mg PO Q6H PRN (Reason: fever or pain) Qty: 30 0RF prednisone 20 mg tablet 40 mg PO DAILY Qty: 10 0RF loratadine [Claritin] 10 mg tablet 10 mg PO DAILY Qty: 10 0RF Discontinued cefuroxime axetil 500 mg tablet 500 mg PO BID 10 Days Qty: 20 0RF doxycycline hyclate 100 mg tablet 100 mg PO BID Qty: 20 0RF Discharge Orders: Discharge Order (Routine); Ordered 06/21/25 Ordered By: Noah Andres Diet: Advance to usual diet Activity on Discharge: As tolerated Stand Alone Forms: Patient Portal Discharge page Print Language: [place] Care Plan Goals: Recovery Health Concerns: Antihistamine toxicity Plan of Treatment: Avoid excess Benadryl or other sedating lkyy-fud-youvyrn medications Assessment: See above
== END 2025-06-21 12:55 | disposition home or self-care (01) ==
LOC: HO.ED 07:06 → HO.EDOVER 09:19
PROVIDERS: Admitting Provider Internal Medicine; Emergency Provider Emergency Medicine; PCP Plastic Surgery; Visit Provider Internal Medicine
DX: G92.8 Other toxic encephalopathy (principal); T45.0X5A Adverse effect of antiallergic and antiemetic drugs, initial encounter; Y92.9 Unspecified place or not applicable; R26.89 Other abnormalities of gait and mobility; R53.83 Other fatigue; U07.1 COVID-19; R05.9 Cough, unspecified; R00.0 Tachycardia, unspecified
CPT/HCPCS: 36415; 62270; 70450; 70496; 70498; 71045; 80053; 80143; 80179; 80307; 81001; 82140; 82550; 83605; 83735; 84443; 85025; 86140; 87040; 87637; 93005; 96361; 96372; 96374; 96375; 96376; 99222; 99285; J0696; J1100; J1630; J2003; J3360; J7120; Q9967

== ENCOUNTER → 2025-06-21 03:00 | Outpatient (BNV) | payer OTHER, SELFPAY | PROVIDERS: Emergency Provider Emergency Medicine; PCP Plastic Surgery; Visit Provider Radiology Diagnostic Radiology | DX: R41.82 Altered mental status, unspecified (principal); R05.9 Cough, unspecified | CPT/HCPCS: 70450; 70496; 70498; 71045 ==

== ENCOUNTER → 2025-06-21 03:00 | Outpatient (BNV) | payer OTHER, SELFPAY | PROVIDERS: Admitting Provider Internal Medicine; Emergency Provider Emergency Medicine; PCP Plastic Surgery; Visit Provider Internal Medicine Cardiovascular Disease | DX: R00.0 Tachycardia, unspecified (principal); I45.10 Unspecified right bundle-branch block | CPT/HCPCS: 93010 ==

== ENCOUNTER → 2025-06-21 07:01 | Outpatient (BNV) | payer OTHER, SELFPAY | PROVIDERS: Admitting Provider Internal Medicine; Emergency Provider Emergency Medicine; PCP Plastic Surgery; Visit Provider Internal Medicine | DX: G93.40 Encephalopathy, unspecified (principal) | CPT/HCPCS: 99223; 99499 ==

== ENCOUNTER 2025-09-04 10:40 | Outpatient (AMB) | payer OTHER, SELFPAY ==
[2025-09-04 10:43] VITALS: BP 130/88; PULSE 85; TEMP 36.8; O2SAT 98; BMI 27.8
--- NOTE | 2025-09-04 10:43 | MHC.OFFWIV ---
Intake Vital Signs 09/04/25 10:43 Height 6 ft Weight 205 lb BMI 27.8 BP 130/88 Blood Pressure Location Lt brachial Position Sitting Pulse 85 Pulse Source Pulse Oximeter Temp 98.2 F Temp Source Oral Pulse Oximetry (%) 98 Oxygen Delivery Method Room Air Intake Visit Reasons: EP Dizziness Intake Note: pt presents with dizziness, mild lightheaded during the day, off balance x1.5 days Patient Tobacco Use Status: Never used Tobacco Allergies amoxicillin Adverse Reaction (Verified 09/04/25 10:46) Hives Penicillins Adverse Reaction (Verified 09/04/25 10:46) Hives sulfamethoxazole (From Bactrim) Adverse Reaction (Verified 09/04/25 10:46) Hives trimethoprim (From Bactrim) Adverse Reaction (Verified 09/04/25 10:46) Hives Do you need a note to return to daycare/school/sports/work: Yes HPI HPI Comments History of Present Illness Details History of Present Illness - The patient is a 45-year-old male presenting with dizziness and balance issues. - The dizziness began two nights ago, characterized by room spinning and severe imbalance upon movement, particularly when turning in bed or tilting the head back, to the left or to the right. Lasts minutes, resolves spontaneously. - The patient experienced a fall today due to loss of balance but did not lose consciousness or experience any head trauma, is not on a blood thinner. - The patient reports a recent upper respiratory infection two weeks ago, with symptoms of congestion and a lingering cough, which have since resolved. - No history of similar episodes of dizziness or vertigo prior to this incident. - Denies any weakness, numbness, vision changes, chest pain, shortness of breath, sweating, nausea or vomiting. Review of Systems - Neurological: Reports dizziness and lightheadedness. Denies loss of consciousness or visual changes. - Cardiovascular: Denies chest pain, palpitations, or syncope. - Respiratory: Denies dyspnea or wheezing. Reports recent upper respiratory infection with resolved cough. All systems reviewed and are unremarkable except as noted in HPI Physical Exam General: Cooperative, healthy appearing, comfortable, no acute distress and well developed Orientation: Patient oriented x3 Limitations: No limitations Head: Normal to inspection Eyes: see below Ears: Hearing grossly normal bilaterally, EAC's normal bilat, TM's normal bilaterally Nose: Normal External nose present Face and sinus: Normal facial exam Eyes: Appearance normal, both eyes and all related structures Neck: Normal visual inspection and Yes full ROM Respiratory: Normal respiratory effort and able to speak in complete sentences. Skin: No rashes or lesions noted Neuro: Patient oriented x3, gait normal, see below Extremities: Normal to inspection COUNT INCLUDES THE [facility] Medical History Depression Social History Patient Tobacco Use Status: Never used Tobacco Physical Exam Vital Signs: Last Vital Signs Temp 98.2 F 09/04/25 10:43 Pulse 85 09/04/25 10:43 BP 130/88 09/04/25 10:43 Pulse Ox 98 09/04/25 10:43 Oxygen Delivery Method Room Air 09/04/25 10:43 BMI result Body Mass Index 27.8 Eyes General: appearance normal, both eyes and all related structures Visual Huynh: normal visual huynh by confrontation Periorbital: periorbital findings normal Eyelids: Yes eyelids normal Conjunctivae: conjunctivae normal Pupils: Equal, round and reactive pupils present and Pupils normal by confrontation EOM: EOMs intact bilaterally and No Nystagmus present Neuro Cranial nerves: Yes Equal, round and reactive pupils present and No Nystagmus present Cognition (Neuro): normal cognition Assessment & Plan Assessment & Plan (1) BPPV (benign paroxysmal positional vertigo): Code(s): H81.10 - Benign paroxysmal vertigo, unspecified ear Qualifiers: Laterality: bilateral Qualified Code(s): H81.13 - Benign paroxysmal vertigo, bilateral Plan: Plan Patient was informed and verbally consented to the use of an ambient scribe for clinic note documentation during this visit. 1. Benign Paroxysmal Positional Vertigo (Bppv) - No PE findings or symptoms to suggest central causes, likely peripheral. Based on the fact he had a recent URI with head congestion, likely BPPV. - Recommended performing the Tacho maneuver, bilaterally, at home to reposition otoliths and alleviate symptoms. - Advised to perform the maneuver multiple times, potentially with assistance, to ensure effectiveness. - Provided instructions on how to perform the maneuver and advised on post-maneuver precautions to prevent recurrence. Medications: Discontinued prednisone Discontinued Reason: Patient Completed Course 40 mg (2 x 20 mg) PO DAILY 10 tabs 0RF loratadine (Claritin) Discontinued Reason: Patient Completed Course 10 mg PO DAILY 10 tabs 0RF prednisone Discontinued Reason: Patient Completed Course 40 mg (2 x 20 mg) PO DAILY 10 tabs 0RF Coding Level of Care Code New Pt Level 3 (78622) Diagnoses Benign paroxysmal positional vertigo due to bilateral vestibular disorder H81.13 Laterality: bilateral
--- OUTSIDE RECORDS SUMMARY | 2025-09-04 12:05 | XMS_ITS | Encounter Summary ---
Author Organization [facility] Address [address] [place] [address] Care Team Providers Care Well Logging Captain Name Role Phone Pierre Salcedo Primary Care Provider Encounter Details Date Type Department Care Team (Late st Contact Info) Description 03/09/2022 Orders Only [facility] [address] [place] [address] Shikha Hooker, [employer] O[employer] [address] [place] [address] Social History Tobacco Use Types Packs/Day Years Used Date Smoking Tobacco: Never Assessed Sex and Gender Information Value Date Recorded Sex Assigned at Male 04/30/2023 9:49 AM EDT Legal Sex Male 11:48 AM EDT Gender Identity Male 04/30/2023 9:49 AM EDT Sexual Orientation Straight 04/30/2023 9: 49 AM EDT documented as of this encounter Plan of Treatment Not on file documented as of this encounter Visit Diagnoses Not on filedocumented in this encounter Care Teams Well Logging Captain Relationship Specialty Start Date End Date Pierre Salcedo PCP - General Family Medicine 03/08/22 documented as of this encounter
--- OUTSIDE RECORDS SUMMARY | 2025-09-04 12:05 | XMS_ITS | Clinical Summary ---
Author Organization [facility] Address [address] [place] [address] Care Team Providers Care Director Of Publications Name Role Phone Pierre Salcedo Primary Care Provider [phone] Allergies Active Allergy Reactions Criticality Noted Date [...] - PPSV23, PCV20, or PCV21) 08/23/2015 06/28/2015 Alcohol/Substance Use Screening 11/05/2024 Depression Screening and Follow-Up 11/05/2024 Social Drivers of Health Annual Screening 11/05/2024 DTaP,Tdap,and Td Vaccines (2 - Td or Tdap) 06/28/2025 06/28/2015 COVID-19 Vaccine (3 - 2024- season) 2025, 02/01/2021 Influenza Vaccine (#1) 2025 08/18/2020, 2018 RSV Vaccine (60+ years old a nd patients) (1 - 1-dose 75+ series) 2057 HIV Screening Completed 05/01/2023 Insurance [facility] PPO/EPO Care Teams Director Of Publications Relationship Specialty Start Date End Date Pierre Salcedo PCP - General Family Medicine 03/08/22
== END 2025-09-04 11:09 | disposition home or self-care (01) ==
PROVIDERS: PCP Plastic Surgery; Visit Provider Physician Assistant
DX: H81.13 Benign paroxysmal vertigo, bilateral (principal)

== ENCOUNTER → 2025-09-04 10:40 | Outpatient (BNVA) | payer OTHER, SELFPAY | PROVIDERS: PCP Plastic Surgery; Visit Provider Physician Assistant | DX: H81.13 Benign paroxysmal vertigo, bilateral (principal) | CPT/HCPCS: 99202 ==